=== PATIENT | female | born 1960 | race Caucasian/White ===

== ENCOUNTER 2021-05-23 19:10 | Inpatient (IN) | payer BC ==
[2021-05-23] MEDS ORDERED: Acetaminophen 325 MG Tab PO ONE (19:41)
--- NOTE | 2021-05-23 19:55 | EDM.PDOC ---
ED HPI GENERAL MEDICAL PROBLEM - General Chief Complaint: Possible Sepsis Stated Complaint: NOT FEEKING WELL/ DIABETES Time Seen by Provider: 05/23/21 19:30 History Limitations: Reports: No Limitations, Intoxication - History of Present Illness INITIAL COMMENTS - FREE TEXT/NARRATIVE: 60-year-old lady came to the emergency department for evaluation of about a 24- hour history of really not feeling well. She has had fever, chills, shakes, nausea without vomiting, weakness/malaise. Approximately 8 weeks ago she had a pedicure and got an infection in her right great toe. She saw her primary care physician on 04/29/2021 and was treated with doxycycline. She states that the infection initially improved but has gotten much worse over the last 2 to 3 days. She has developed a large blister that looks like a blood blister medial distal aspect of her right great toe. The area of erythema and swelling has expanded proximally towards the metatarsal phalangeal joint. He was treated with doxycycline for 10 days starting on 04/29/2021. Generalized Pain Score (Numeric/FACES): 4 - Related Data Allergies Allergy/AdvReac Type Severity Reaction Status Date / Time rabies immune globulin Allergy Swelling Verified 05/23/21 19:42 Home Meds: Home Meds Aspirin [[place] Aspirin EC] 81 mg PO DAILY 05/23/21 [History] FLUoxetine HCl [Prozac] 20 mg PO DAILY 05/23/21 [History] Insulin Aspart [Insulin Aspart Flexpen] 30 units SQ TID 05/23/21 [History] Insulin Degludec [Tresiba Flextouch U-100] 90 units SQ BEDTIME 05/23/21 [History] Meclizine [Antivert] 25 mg PO Q4H PRN 05/23/21 [History] Rosuvastatin [Crestor] 10 mg PO DAILY 05/23/21 [History] metFORMIN HCl [Metformin HCl ER] 500 mg PO BID 05/23/21 [History] Past Medical History Cardiovascular History: Reports: High Cholesterol Gastrointestinal History: Reports: Gastritis, GERD [employer] History: Reports: Musculoskeletal History: Reports: Other (See Below) Other Musculoskeletal History: fx left toe, infection great toe rt foot Psychiatric History: Reports: Depression - Past Surgical History Female Surgical History: Reports: Hysterectomy Social & Family History - Tobacco Use Tobacco Use Status *Q: Never Tobacco User - Caffeine Use Caffeine Use: Reports: Coffee, Soda - Recreational Drug Use Recreational Drug Use: No ED ROS GENERAL - Review of Systems Review Of Systems: See Below Constitutional: Reports: Fever, Chills, Malaise, Weakness HEENT: Reports: No Symptoms Respiratory: Reports: No Symptoms Cardiovascular: Reports: No Symptoms Endocrine: Reports: Fatigue, Other (Type 2 diabetes) GI/Abdominal: Reports: Nausea : Reports: No Symptoms Musculoskeletal: Reports: Foot Pain Skin: Reports: Bruising, Erythema, Change in Color, Change in Hair/Nails, Lesions Neurological: Reports: No Symptoms Psychiatric: Reports: No Symptoms Hematologic/Lymphatic: Reports: No Symptoms Immunologic: Reports: No Symptoms ED EXAM, SEPSIS - Physical Exam Exam: See Below Exam Limited By: No Limitations General Appearance: Alert, Mild Distress Eye Exam: Bilateral Eye: EOMI Head: Atraumatic, Normocephalic Respiratory/Chest: No Respiratory Distress, Lungs Clear, Normal Breath Sounds Cardiovascular: Tachycardia, Systolic Murmur Peripheral Pulses: 2+: Radial (L), Radial (R), Dorsalis Pedis (L), Dorsalis Pedis (R) GI/Abdominal Exam: Normal Bowel Sounds, Soft, Non-Tender Back: Normal Inspection. No: CVA Tenderness (R), CVA Tenderness (L) Extremities: Normal Capillary Refill, Other (Visual inspection of the right great toe shows erythema, ecchymosis, approximately 0.5 x 0.5 x 0.5 blood blister on the distal, medial aspect of the right great toe, sensation and capillary refill are intact, strength and movement intact) Neurological: Alert, Oriented, CN II-XII Intact, Normal Cognition Psychiatric: Normal Affect, Normal Mood Skin: Ecchymosis, Erythema, Increased Warmth Course - Vital Signs Last Recorded V/S: Last Vital Signs Temp 38.8 C H 05/23/21 20:44 Pulse 103 H 05/23/21 20:44 Resp 20 05/23/21 20:44 BP 152/67 H 05/23/21 20:44 Pulse Ox 89 L 05/23/21 20:44 - Orders/Labs/Meds Orders: Active Orders 24 hr Category Date Time Status Patient Status Manage Transfer [TRANSFER] Routine ADT 05/23/21 22:37 Active Heart Healthy Diet [DIET] Diet 05/24/21 Breakfast Ordered Chest 1V Frontal [CR] Stat Exams 05/23/21 20:48 Taken BASIC METABOLIC PANEL,BMP [CHEM] Stat Lab 05/24/21 Ordered CBC WITH AUTO DIFF [HEME] Stat Lab 05/24/21 Ordered CULTURE BLOOD [BC] Urgent Lab 05/23/21 19:55 Received CULTURE BLOOD [BC] Urgent Lab 05/23/21 20:00 Received VANCOMYCIN TROUGH [CHEM] Timed Lab 05/25/21 07:30 Ordered Pharmacy to Dose - Vancomycin Med 05/23/21 20:00 Pending 1 dose .XX ASDIRECTED Piperacillin/Tazobactam [Zosyn] 3.375 gm Med 05/23/21 20:00 Active Sodium Chloride 0.9% [Normal Saline] 50 ml IV Q6H Sodium Chloride 0.9% [Normal Saline] 1,000 ml Med 05/23/21 22:45 Active IV ASDIRECTED VANCOmycin 1.5 GM/300 ML 1.5 gm Med 05/24/21 09:00 Active Premix Bag 1 bag IV Q12H Blood Culture x2 Reflex Set [OM.PC] Urgent Oth 05/23/21 19:40 Ordered Medication Orders Piperacillin Sod/Tazobactam (Sod 3.375 gm/ Sodium Chloride) 50 mls @ 100 mls/hr IV Q6H REINA Last Admin: 05/23/21 20:14 Dose: 100 mls/hr Documented by: GERDA Vancomycin HCl 1.5 gm/ Premix 300 mls @ 200 mls/hr IV Q12H REINA Sodium Chloride (Normal Saline) 1,000 mls @ 125 mls/hr IV ASDIRECTED [facility] Vancomycin HCl (Pharmacy To Dose - Vancomycin) 1 dose .XX ASDIRECTED [facility] Labs: Laboratory Tests 05/23/21 05/23/21 05/23/21 Range/Units 19:55 19:55 19:55 WBC 7.7 (3.0-10.3) x10-3/uL RBC 4.11 (3.60-5.20) x10(6)uL Hgb 11.3 L (11.4-15.5) g/dL Hct 34.0 L (34.2-48.2) % MCV 82.6 (76.7-100.5) fL MCH 27.4 (23.9-33.9) pg MCHC 33.1 (31.9-34.8) g/dL RDW 14.7 (12.3-16.5) % Plt Count 186 (151-488) x10(3)uL MPV 9.0 (7.1-12.4) fL Neut % (Auto) 84.2 H (30.8-76.2) % Lymph % (Auto) 9.5 L (18.4-52.1) % [place] % (Auto) 5.8 (4.4-15.7) % Eos % (Auto) 0.2 L (0.6-8.1) % Baso % (Auto) 0.3 (0.2-1.5) % Neut # (Auto) 6.5 H (1.5-6.3) x10-3/uL Lymph # (Auto) 0.7 L (1.0-4.4) x10-3/uL [place] # (Auto) 0.5 (0.3-1.0) x10-3/uL Eos # (Auto) 0.0 (0.0-0.8) x10-3/uL Baso # (Auto) 0.0 (0.0-0.1) x10-3/uL Sodium 136 (135-145) mmol/L Potassium 3.9 (3.5-5.3) mmol/L Chloride 100 (100-110) mmol/L Carbon Dioxide 27 (21-32) mmol/L BUN 18 (7-18) mg/dL Creatinine 1.2 H (0.55-1.02) mg/dL Est Cr Clr Drug Dosing 46.09 mL/min Estimated GFR (MDRD) 46 L (>60) BUN/Creatinine Ratio 15.0 (9-20) Glucose 219 H (80-116) mg/dL Lactic Acid 1.0 (0.4-2.0) mmol/L Calcium 8.7 (8.6-10.2) mg/dL Total Bilirubin 0.5 (0.1-1.3) mg/dL AST 23 (5-25) IU/L ALT 41 H (12-36) U/L Alkaline Phosphatase 89 (56-112) IU/L C-Reactive Protein (0.5-0.9) mg/dL Total Protein 7.6 (6.0-8.0) g/dL Albumin 3.2 (3.2-4.6) g/dL Globulin 4.4 g/dL Albumin/Globulin Ratio 0.7 SARS-CoV-2 RNA (GARRETT) (NEGATIVE) 05/23/21 05/23/21 Range/Units 19:55 20:54 WBC (3.0-10.3) x10-3/uL RBC (3.60-5.20) x10(6)uL Hgb (11.4-15.5) g/dL Hct (34.2-48.2) % MCV (76.7-100.5) fL MCH (23.9-33.9) pg MCHC (31.9-34.8) g/dL RDW (12.3-16.5) % Plt Count (151-488) x10(3)uL MPV (7.1-12.4) fL Neut % (Auto) (30.8-76.2) % Lymph % (Auto) (18.4-52.1) % [place] % (Auto) (4.4-15.7) % Eos % (Auto) (0.6-8.1) % Baso % (Auto) (0.2-1.5) % Neut # (Auto) (1.5-6.3) x10-3/uL Lymph # (Auto) (1.0-4.4) x10-3/uL [place] # (Auto) (0.3-1.0) x10-3/uL Eos # (Auto) (0.0-0.8) x10-3/uL Baso # (Auto) (0.0-0.1) x10-3/uL Sodium (135-145) mmol/L Potassium (3.5-5.3) mmol/L Chloride (100-110) mmol/L Carbon Dioxide (21-32) mmol/L BUN (7-18) mg/dL Creatinine (0.55-1.02) mg/dL Est Cr Clr Drug Dosing mL/min Estimated GFR (MDRD) (>60) BUN/Creatinine Ratio (9-20) Glucose (80-116) mg/dL Lactic Acid (0.4-2.0) mmol/L Calcium (8.6-10.2) mg/dL Total Bilirubin (0.1-1.3) mg/dL AST (5-25) IU/L ALT (12-36) U/L Alkaline Phosphatase (56-112) IU/L C-Reactive Protein 12.7 H* (0.5-0.9) mg/dL Total Protein (6.0-8.0) g/dL Albumin (3.2-4.6) g/dL Globulin g/dL Albumin/Globulin Ratio SARS-CoV-2 RNA (GARRETT) Negative (NEGATIVE) Meds: Medications Generic Name Dose Route Start Last Admin Trade Name Freq PRN Reason Stop Dose Admin Piperacillin Sod/Tazobactam 50 mls @ 100 mls/hr 05/23/21 20:00 05/23/21 20:14 Sod 3.375 gm/ Sodium Chloride IV 100 mls/hr Q6H REINA Administration Vancomycin HCl 1.5 gm/ Premix 300 mls @ 200 mls/hr 05/24/21 09:00 IV Q12H REINA Sodium Chloride 1,000 mls @ 125 mls/hr 05/23/21 22:45 Normal Saline IV ASDIRECTED REINA Vancomycin HCl 1 dose 05/23/21 20:00 Pharmacy To Dose - Vancomycin .XX ASDIRECTED REINA Discontinued Medications Generic Name Dose Route Start Last Admin Trade Name Freq PRN Reason Stop Dose Admin Acetaminophen 650 mg 05/23/21 19:41 05/23/21 19:59 Acetaminophen 325 Mg Tab PO 05/23/21 19:42 650 mg NOW ONE Administration Sodium Chloride 1,000 mls @ 999 mls/hr 05/23/21 19:56 05/23/21 21:02 Normal Saline IV 05/23/21 20:56 300 mls/hr .BOLUS ONE Infusion Vancomycin HCl 2 gm/ Premix 400 mls @ 200 mls/hr 05/23/21 20:15 05/23/21 20:58 IV 05/23/21 22:14 200 mls/hr STAT ONE Administration Morphine Sulfate 2 mg 05/23/21 21:35 Morphine 2 Mg/Ml Syringe IVPUSH 05/23/21 21:36 ONETIME ONE Ondansetron HCl 4 mg 05/23/21 20:03 05/23/21 20:08 Ondansetron 4 Mg/2 Ml Sdv IVPUSH 05/23/21 20:04 4 mg ONETIME ONE Administration Ondansetron HCl 4 mg 05/23/21 21:53 05/23/21 22:08 Ondansetron 4 Mg/2 Ml Sdv IVPUSH 05/23/21 21:54 4 mg ONETIME ONE Administration Departure - Departure Time of Disposition: 22:43 Disposition: Admitted As Inpatient 65 Condition: Fair Clinical Impression: Sepsis, Cellulitis - Discharge Information *PRESCRIPTION DRUG MONITORING PROGRAM REVIEWED*: Not Applicable *COPY OF PRESCRIPTION DRUG MONITORING REPORT IN PATIENT ANNE: Not Applicable Instructions: Cellulitis, Adult, Sepsis, Diagnosis, Adult Forms: ED Department Discharge Sepsis Event Note (ED) - Evaluation Sepsis Screening Result: Possible Severe Sepsis Risk - Focused Exam Vital Signs: Vital Signs Temp Pulse Resp BP Pulse Ox 05/23/21 20:44 38.8 C H 103 H 20 152/67 H 89 L 05/23/21 19:20 39.5 C H 116 H 20 164/81 H 94 L - My Orders Last 24 Hours: My Active Orders 05/23/21 19:40 Blood Culture x2 Reflex Set [OM.PC] Urgent 05/23/21 19:55 CULTURE BLOOD [BC] Urgent 05/23/21 20:00 CULTURE BLOOD [BC] Urgent Pharmacy to Dose - Vancomycin 1 dose .XX ASDIRECTED Piperacillin/Tazobactam [Zosyn] 3.375 gm Sodium Chloride 0.9% [Normal Saline] 50 ml IV Q6H 05/23/21 20:48 Chest 1V Frontal [CR] Stat 05/23/21 22:37 Patient Status Manage Transfer [TRANSFER] Routine 05/23/21 22:45 Sodium Chloride 0.9% [Normal Saline] 1,000 ml IV ASDIRECTED 05/24/21 BASIC METABOLIC PANEL,BMP [CHEM] Stat CBC WITH AUTO DIFF [HEME] Stat 05/24/21 Breakfast Heart Healthy Diet [DIET] 05/24/21 09:00 VANCOmycin 1.5 GM/300 ML 1.5 gm Premix Bag 1 bag IV Q12H - Assessment/Plan Last 24 Hours: My Active Orders 05/23/21 19:40 Blood Culture x2 Reflex Set [OM.PC] Urgent 05/23/21 19:55 CULTURE BLOOD [BC] Urgent 05/23/21 20:00 CULTURE BLOOD [BC] Urgent Pharmacy to Dose - Vancomycin 1 dose .XX ASDIRECTED Piperacillin/Tazobactam [Zosyn] 3.375 gm Sodium Chloride 0.9% [Normal Saline] 50 ml IV Q6H 05/23/21 20:48 Chest 1V Frontal [CR] Stat 05/23/21 22:37 Patient Status Manage Transfer [TRANSFER] Routine 05/23/21 22:45 Sodium Chloride 0.9% [Normal Saline] 1,000 ml IV ASDIRECTED 05/24/21 BASIC METABOLIC PANEL,BMP [CHEM] Stat CBC WITH AUTO DIFF [HEME] Stat 05/24/21 Breakfast Heart Healthy Diet [DIET] 05/24/21 09:00 VANCOmycin 1.5 GM/300 ML 1.5 gm Premix Bag 1 bag IV Q12H Assessment:: Patient has a systolic ejection murmur. I looked at her heart using ultrasound and showed thickened mitral and aortic valves with no significant regurgitation. However, she does have aortic sclerosis at minimum. Continue to have concern for endocarditis. Trend blood cultures. I also have concern for osteomyelitis. Consider consultation with surgery and/or transfer to [facility] when a bed is available.
[2021-05-23] MEDS ORDERED: Sodium Chloride 0.9% 1,000 ML IV ONE (19:56)
[2021-05-23] MEDS ORDERED: Ondansetron 4 MG/2 ML SDV IVPUSH ONE ×2 (20:03→21:53)
[2021-05-23] MEDS: Piperacillin/Tazobactam 3.375 GM in Sodium Chloride 0.9% 50 ML IV SCH (20:14)
[2021-05-23] MEDS ORDERED: VANCOmycin 2 GM/400 ML 2 GM in Premix Bag 1 BAG IV ONE (20:15)
[2021-05-23] MEDS ORDERED: Morphine 2 MG/ML SYRINGE IVPUSH ONE (21:35)
[2021-05-23] MEDS: Sodium Chloride 0.9% 1,000 ML IV SCH (23:10)
[2021-05-23] MEDS ORDERED: Acetaminophen/HYDROcodone 325-5 MG Tab PO PRN (23:30)
[2021-05-23] MEDS: Acetaminophen/HYDROcodone 325-5 MG Tab PO PRN (23:39)
[2021-05-24] MEDS: Piperacillin/Tazobactam 3.375 GM in Sodium Chloride 0.9% 50 ML IV SCH ×4 (02:07→20:04)
[2021-05-24] MEDS: Ondansetron 4 MG/2 ML SDV IVPUSH SCH ×3 (02:09→14:06)
[2021-05-24] MEDS ORDERED: Ondansetron 4 MG/2 ML SDV IVPUSH PRN (09:00)
[2021-05-24] MEDS: VANCOmycin 1.5 GM/300 ML 1.5 GM in Premix Bag 1 BAG IV SCH ×2 (09:50→20:55)
[2021-05-24 10:43] LABS: HEMOGLOBIN A1C 8.8 % (<5.7)
--- NOTE | 2021-05-24 13:16 | CR ---
RIGHT GREAT TOE INDICATION: Infected toe in a diabetic. Three views of the right great toe revealed evidence of severe osteoarthritis at the first metatarsophalangeal joint. The possibility of a septic joint in that area is difficult to entirely exclude. Osteomyelitis in the area of the medial first metatarsophalangeal joint is difficult to exclude. No definite acute fracture or dislocation was seen, although an ununited chip fracture fragment is suggested along the medial aspect of the proximal metaphysis of the proximal phalanx of the great toe. As felt to be clinically necessary, three phase nuclear bone imaging may be helpful for further evaluation. MTDD
--- NOTE | 2021-05-24 13:18 | CR ---
CHEST ONE VIEW INDICATION: Cough. AP upright portable view of the chest was obtained 05/23/2021 - no comparison. The heart did not appear grossly enlarged allowing for the portable AP positioning. No gross consolidating pneumonia or effusion was seen. IMPRESSION: No definite acute process. MTDD
[2021-05-24] MEDS ORDERED: Insulin Lispro 100 Unit/ML 3 ML KwikPen SUBCUT ONE (13:38)
[2021-05-24] MEDS: Insulin Lispro 100 Unit/ML 3 ML KwikPen SUBCUT SCH ×2 (13:39→18:13)
--- NOTE | 2021-05-24 13:40 | HP ---
ADMISSION DATE: 05/23/2021 CHIEF COMPLAINT: Painful right great toe. HISTORY OF PRESENT ILLNESS: Jazmín Mills is a 60-year-old female, admitted through [facility] on 05/23/2021. Had been in good health. By report, had a pedicure sometime in February. She had been trimming on a callus in the interim. A week ago had pain, discomfort, redness. Was seen by Mary Aguiar PA-C at [facility], placed on doxycycline. Has an upcoming appointment tomorrow. Yesterday, though became much more ill. Fever, chills, sweats, hot and cold headache, myalgias, and a sense of reduced well-being through the night. Dictated intervention and treatment and visit with the ER. Was found to have swollen toe, was placed on antibiotic. No blood cultures were obtained. HOME MEDICATIONS: Include: 1. Metformin 500 mg 1 p.o. b.i.d., NIDDM. 2. Crestor 10 mg 1 p.o. daily, NIDDM. 3. Tresiba 90 units subcu at bedtime. 4. Humalog 30 units t.i.d. each meal. 5. Fluoxetine 20 mg daily. 6. Baby aspirin. ALLERGIES: Allergic to rabies immunoglobulin. PAST MEDICAL HISTORY: Significant for menorrhagia, and left Achilles tendon repair. No other operative procedures, hospitalizations, unusual childhood diseases, major injuries, or fractures. Treated diabetes and its implicating health issues. SOCIAL HISTORY: Works for the [employer]. . Three boys, 11 grandchildren. Nonsmoker. No chewing. No vaping. No alcohol. REVIEW OF SYSTEMS: CONSTITUTIONAL: Other than yesterday, feeling well. EYES: Sees well. EARS: Hears well. OROPHARYNX: Intact dentition. No loose teeth. CARDIOVASCULAR: Denies chest pain, palpitations, syncope. RESPIRATORY: No chronic cough, wheeze, or congestion. GASTROINTESTINAL: Regular predictable stools. No blood in stools. GENITOURINARY: Good voiding pattern. No blood in urine . ORTHOPEDIC: Please see HPI. SKIN: No lesions, eruptions, or moles . ENDOCRINE: Diabetes on board. PSYCHIATRIC: Mood stable, on fluoxetine. NEUROLOGIC: Denies headache, blurred vision, weakness, or tremors. PHYSICAL EXAMINATION: VITAL SIGNS: 94 kg. 36.4, 76, 132/72, 18, 92%. GENERAL: Young lady, cooperative, conversant, appears well. HEENT: Funduscopic benign. Conjunctivae clear. Bright tympanic membranes. Clear nasal discharge. Mouth and oropharynx clear. NECK: Benign. Thyroid small. CHEST: On auscultation, clear in all lung ardon. HEART: On auscultation, no ectopy or murmur. Normal S1, S2 without S3, S4, murmur. BREASTS: Declined and deferred. ABDOMEN: Benign. No surgical scars. No hepatosplenomegaly. EXTREMITIES: Reveal good peripheral pulse, dorsalis pedis posterior bilaterally. There was a large blistering ecchymotic warm erythematous right great toe extending on the dorsum midfoot. ASSESSMENT: Complicated right great toe issue, certainly soft tissue infection, potential osteomyelitis. PLAN: Zosyn and vancomycin on board. Analgesics as appropriate. Medications adjusted accordingly. We will see consultation with Dr. Torres for debridement and culture. /[id number] /PETER
[2021-05-24] MEDS: Acetaminophen/HYDROcodone 325-5 MG Tab PO PRN (13:51)
--- NOTE | 2021-05-24 13:56 | PN ---
DATE SEEN: 05/24/2021 This 60-year-old female is seen at the request of Dr. Jimenez for right great toe infection. She was admitted through the emergency room yesterday and was found to have evidence of a right great toe infection, possible sepsis. She is diabetic. She had been having some fevers, chills, and nausea. She had gotten a pedicure a couple of months ago on the right great toe and has had some problems with it. She was treated with oral antibiotics a couple of weeks ago by her primary provider, and the toe got worse over the last few days and was now a blister extending from the bottom of her toe to the medial side. On exam today, she does have evidence of an infection and I did excise the blister on the medial aspect of the toe with some bloody purulent-type drainage. This was cultured. There is some slight erythema around the blister site, but no extensive cellulitis. At this point, she should continue her antibiotics and culture results will be back in a couple of days, and antibiotics can be adjusted at that time if necessary. I will have her start to soak her foot twice daily. /[id number] SELENA/PETER
[2021-05-24] MEDS: metFORMIN 500 MG Tab.ER PO SCH (18:12)
[2021-05-24] MEDS: Sodium Chloride 0.9% 1,000 ML IV SCH (19:36)
[2021-05-24] MEDS ORDERED: Insulin Glargine,Human Rec. Analog 100 Units/ML 3 ML Pen SUBCUT ONE (21:07)
[2021-05-24] MEDS: Insulin Glargine,Human Rec. Analog 100 Units/ML 3 ML Pen SUBCUT SCH (21:09)
[2021-05-25] MEDS: Acetaminophen/HYDROcodone 325-5 MG Tab PO PRN (00:47)
[2021-05-25] MEDS: Piperacillin/Tazobactam 3.375 GM in Sodium Chloride 0.9% 50 ML IV SCH ×4 (02:36→20:55)
[2021-05-25] MEDS: Sodium Chloride 0.9% 1,000 ML IV SCH (06:02)
[2021-05-25] MEDS: metFORMIN 500 MG Tab.ER PO SCH ×2 (08:22→17:48)
[2021-05-25] MEDS: Insulin Lispro 100 Unit/ML 3 ML KwikPen SUBCUT SCH ×3 (08:22→17:49)
[2021-05-25] MEDS: FLUoxetine 20 MG Cap PO SCH (08:33)
[2021-05-25] MEDS: Rosuvastatin 10 MG Tab PO SCH (08:33)
[2021-05-25] MEDS: Aspirin 81 MG Tab.EC PO SCH (08:33)
[2021-05-25] MEDS: VANCOmycin 1.5 GM/300 ML 1.5 GM in Premix Bag 1 BAG IV SCH ×2 (09:14→21:36)
[2021-05-25] MEDS: Insulin Glargine,Human Rec. Analog 100 Units/ML 3 ML Pen SUBCUT SCH (20:56)
[2021-05-26] MEDS: Piperacillin/Tazobactam 3.375 GM in Sodium Chloride 0.9% 50 ML IV SCH ×4 (02:06→21:04)
[2021-05-26] MEDS: metFORMIN 500 MG Tab.ER PO SCH ×2 (08:24→17:37)
[2021-05-26] MEDS: Insulin Lispro 100 Unit/ML 3 ML KwikPen SUBCUT SCH ×3 (08:25→17:37)
[2021-05-26] MEDS: Sodium Chloride 0.9% 10 ML Syringe FLUSH PRN ×2 (08:25→10:30)
[2021-05-26] MEDS: Rosuvastatin 10 MG Tab PO SCH (08:35)
[2021-05-26] MEDS: Aspirin 81 MG Tab.EC PO SCH (08:36)
[2021-05-26] MEDS: FLUoxetine 20 MG Cap PO SCH (08:36)
[2021-05-26] MEDS: VANCOmycin 1.5 GM/300 ML 1.5 GM in Premix Bag 1 BAG IV SCH ×2 (08:54→21:37)
--- NOTE | 2021-05-26 14:30 | PN ---
DATE SEEN: 05/25/2021 SUBJECTIVE: Jazmín Mills is a 60-year-old female admitted with complicated right toe pain. Had a preceding pedicure event, was doing some local debridement, resulted in a complicated infection. Was seen by Dr. Torres, underwent I and D and debridement and culture. Culture this morning pending, no growth. Blood culture similarly no growth after one day. Laboratory studies; normal CBC 05/23/2021 and 05/24/2021. Radiographs of her great toe difficult to interpret. Waiting for the x-ray to come up. She has an obvious likely preexisting injury to the toe. A little bit of a lateral 1st phalanx chip fracture, deforming of the distal 1st metatarsal. Infectious versus old injury uncertain. She is presently on intravenous vancomycin per Pharmacy, along with piperacillin/tazobactam (Zosyn) 3.375 q.6 hours, vancomycin 1.5 g q.12 hours. Minimal pain. OBJECTIVE: GENERAL: Appears comfortable. NECK: Benign. Thyroid small. CHEST: Clear. HEART: Regular. ABDOMEN: Benign. EXTREMITIES: Toe dressed. Complicated toe infection. PLAN: We will await cultures, blood cultures are negative, complementary care and well being, pain is controlled. /[id number] LIZ/PETER
--- NOTE | 2021-05-26 14:31 | PN ---
DATE SEEN: 05/26/2021 SUBJECTIVE: Jazmín Mills is a 60-year-old female admitted with a complicated right toe issue. Likely superficial and not deep. Blood cultures are negative x2 days, both anaerobic and aerobic. Wound culture revealed both gram-positive and negative bacilli, but maybe predominant gram- positive cocci staph pending evaluation. Feeling much better. Happy with all the toe looks. OBJECTIVE: VITAL SIGNS: Stable. EXTREMITIES: Good peripheral pulses, both dorsalis pedis and posterior tibial. Eschar healing. ASSESSMENT: Toe infection. PLAN: Likely superficial, but osteomyelitis is still a concern. Await cultures. Intervention and care. /[id number] LIZ/PETER
[2021-05-26] MEDS: Insulin Glargine,Human Rec. Analog 100 Units/ML 3 ML Pen SUBCUT SCH (21:07)
[2021-05-27] MEDS: Piperacillin/Tazobactam 3.375 GM in Sodium Chloride 0.9% 50 ML IV SCH ×3 (02:08→13:10)
[2021-05-27] MEDS: metFORMIN 500 MG Tab.ER PO SCH (07:30)
[2021-05-27] MEDS: Insulin Lispro 100 Unit/ML 3 ML KwikPen SUBCUT SCH ×2 (07:31→11:47)
[2021-05-27] MEDS: VANCOmycin 1.5 GM/300 ML 1.5 GM in Premix Bag 1 BAG IV SCH (08:13)
[2021-05-27] MEDS: FLUoxetine 20 MG Cap PO SCH (08:14)
[2021-05-27] MEDS: Rosuvastatin 10 MG Tab PO SCH (08:14)
[2021-05-27] MEDS: Aspirin 81 MG Tab.EC PO SCH (08:14)
[2021-05-27] MEDS ORDERED: Sodium Chloride 0.9% 250 ML IV SCH (09:45)
[2021-05-27] MEDS ORDERED: Gadoteridol 279.3 MG/ML 20 ML SDV IV ONE (11:18)
[2021-05-27] MEDS ORDERED: Insulin Lispro 100 Unit/ML 3 ML KwikPen SUBCUT ONE (11:49)
--- NOTE | 2021-05-27 15:22 | PCM.DCSUM1 ---
Discharge Summary - Hospital Course HPI Initial Comments: Admitted from ER for right great toe cellulitis, failed outpatient treatment, had been on cephalexin for sinus infection March 19 then Bactrim and Doxycycline since then for her toe. Had a pedicure in February, they trimmed her callus too much and she sustained a cut, she had been self trimming the callus since then. Week prior to coming to ER she had increased redness, pain, fever, chills, night sweats, headaches, myalgias. She has been Diabetic for 10 yrs, does not see podiatry regularly, but gets her diabetic foot care from Mary Aguiar, PCP. She does have starting of neuropathy. Her chiropractor told her she rolls her foot when she walks especially when she wears sandals. Jazmín states that she usually has problems with the callus in the summer and improves in the winter when she is wearing more supportive shoes. Diagnosis: Stroke: No - Discharge Data Discharge Date: 05/27/21 Discharge Disposition: Home, Self-Care 01 Condition: Fair - Referral to Home Health Primary Care Physician: Mary Aguiar NP - Patient Summary/Data Consults: Consultations 05/24/21 08:52 Consult to Physician [CONS] Routine Consulting Provider: Len Torres Courtesy Call Completed to Consulting Physician: Yes Reason for Consult: bbad toe might need to be debrided Person Notified: yes phonecall at [phone] Date Notified: 05/24/21 Hospital Course: She was admitted for failed outpatient treatment of right great toe cellulitis, started on Zosyn and Vancomycin. CBC was 7.7 and repeat 6.8. Electrolytes normal on admission, repeat today, Cr 1.0. Covid negative. Last vancomycin trough was 16.4. Dr Torres was consulted, he performed I&D and had purulent drainage that was cultured. Wound culture grew staph aureus sensitive to ceftriaxone, Zosyn, Vancomycin and Tetracycline, Bactrim. Her Vancomycin was discontinued. Foot x- ray showed no acute fracture but possible nonunion, could not exclude septic joint or osteomyelitis. Unable to get nuclear medicine bone scan that was recommended so MRI right foot obtained, which showed significant osteoarthritis but no fracture or osteomyelitis/joint involvement. Zosyn received total 4 days IV, then will go home with 6 more days of oral Amoxicillin/clavulanate bid. - Patient Instructions Diet: Diabetic Diet Activity: As Tolerated Driving: Do Not Drive Showering/Bathing: May Shower Wound/Incision Care: Keep Operative Site/Wound Site Clean and Dry Notify Provider of: Fever, Increased Pain, Nausea and/or Vomiting Other/Special Instructions: Follow up with Mary Aguiar on Sunday/Sunday next week for recheck of your foot and review MRI of foot. Start Amoxicillin/Clavulanate Monday 05/28 morning and take until gone. - Discharge Plan *PRESCRIPTION DRUG MONITORING PROGRAM REVIEWED*: Not Applicable *COPY OF PRESCRIPTION DRUG MONITORING REPORT IN PATIENT ANNE: Not Applicable Prescriptions/Med Rec: Amoxicillin/Potassium Clav [Amox Tr-K Clv 875-125 mg Tab] 1 each PO BID 6 Days #12 tablet Home Medications: Home Meds Aspirin [[place] Aspirin EC] 81 mg PO DAILY 05/23/21 [History] FLUoxetine HCl [Prozac] 20 mg PO DAILY 05/23/21 [History] Insulin Aspart [Insulin Aspart Flexpen] 30 units SQ TIDMEALS 05/23/21 [History] Insulin Degludec [Tresiba Flextouch U-100] 90 units SQ BEDTIME 05/23/21 [History] Meclizine [Antivert] 25 mg PO Q4H PRN 05/23/21 [History] Rosuvastatin [Crestor] 10 mg PO DAILY 05/23/21 [History] metFORMIN HCl [Metformin HCl ER] 500 mg PO BIDMEALS 05/23/21 [History] Triamcinolone Acetonide [Nasacort] 1 spray NASBOTH DAILY 05/24/21 [History] Amoxicillin/Potassium Clav [Amox Tr-K Clv 875-125 mg Tab] 1 each PO BID 6 Days #12 tablet 05/27/21 [Rx] Oxygen Therapy Mode: Room Air Patient Handouts: Cellulitis, Adult, Sepsis, Diagnosis, Adult, Hyperglycemia, [id number], Fall Prevention in Hospitals, Adult, You've Been Prescribed an Antibiotic in the Hospital for an Infection - CDC, Venous Thromboembolism Pr evention Forms: ED Department Discharge Referrals: Mary Aguiar, [employer] [employer] [facility] [Primary Care Provider] - - Discharge Summary/Plan Comment DC Time >30 min.: No Total # of Minutes for Discharge Time: 15 min - General Info Date of Service: 05/27/21 Subjective Update: Jazmín states her toe is feeling better, not as red, pain is well controlled. No difficulty walking on it. No fevers. Functional Status: Reports: Pain Controlled, Tolerating Diet, Ambulating, Urinating - Patient Data Vitals - Most Recent: Last Vital Signs Temp 96.8 F L 05/27/21 08:37 Pulse 60 05/27/21 08:37 Resp 51 H 05/27/21 08:37 BP 150/58 H 05/27/21 08:37 Pulse Ox 92 L 05/27/21 08:37 Weight - Most Recent: 208 lb 9 oz I&O - Last 24 hours: Intake & Output 05/27/21 05/27/21 05/27/21 06:59 14:59 22:59 Intake Total 500 Balance 500 Lab Results - Last 24 hrs: Laboratory Results - last 24 hr 05/26/21 05/27/21 Range/Units 20:30 08:40 Sodium 139 (135-145) mmol/L Potassium 4.0 (3.5-5.3) mmol/L Chloride 97 L D (100-110) mmol/L Carbon Dioxide 26 (21-32) mmol/L BUN 17 (7-18) mg/dL Creatinine 1.0 (0.55-1.02) mg/dL Est Cr Clr Drug Dosing 53.16 mL/min Estimated GFR (MDRD) 56 L (>60) BUN/Creatinine Ratio 17.0 (9-20) Glucose 273 H (80-116) mg/dL Calcium 8.7 (8.6-10.2) mg/dL Vancomycin Trough 16.4 H (<0.8) ug/mL FRANCINE Results - Last 24 hrs: Microbiology 05/23/21 20:00 Aerobic Blood Culture - Preliminary Blood - Venous - Lab Draw NO GROWTH AFTER 3 DAYS Anaerobic Blood Culture - Preliminary NO GROWTH AFTER 3 DAYS 05/23/21 19:55 Aerobic Blood Culture - Preliminary Blood - Venous NO GROWTH AFTER 3 DAYS Anaerobic Blood Culture - Preliminary NO GROWTH AFTER 3 DAYS Med Orders - Current: Current Medications Discontinued Medications Acetaminophen (Acetaminophen 325 Mg Tab) 650 mg PO NOW ONE Stop: 05/23/21 19:42 Last Admin: 05/23/21 19:59 Dose: 650 mg Documented by: Hydrocodone Bitart/Acetaminophen (Acetaminophen/Hydrocodone 325-5 Mg Tab) 1 tab PO Q4H PRN PRN Reason: Pain (moderate 4-6) Last Admin: 05/25/21 00:47 Dose: 1 tab Documented by: Aspirin (Aspirin 81 Mg Tab.Ec) 81 mg PO DAILY [facility] Last Admin: 05/27/21 08:14 Dose: 81 mg Documented by: Fluoxetine HCl (Fluoxetine 20 Mg Cap) 20 mg PO DAILY [facility] Last Admin: 05/27/21 08:14 Dose: 20 mg Documented by: Gadoteridol (Gadoteridol 279.3 Mg/Ml 20 Ml Sdv) 20 ml IV . DIRECTED ONE Stop: 05/27/21 11:19 Last Admin: 05/27/21 11:33 Dose: 20 ml Documented by: Piperacillin Sod/Tazobactam (Sod 3.375 gm/ Sodium Chloride) 50 mls @ 100 mls/hr IV Q6H [facility] Last Admin: 05/27/21 13:10 Dose: 100 mls/hr Documented by: Sodium Chloride (Normal Saline) 1,000 mls @ 999 mls/hr IV .BOLUS ONE Stop: 05/23/21 20:56 Last Infusion: 05/23/21 21:02 Dose: 300 mls/hr Documented by: Vancomycin HCl 2 gm/ Premix 400 mls @ 200 mls/hr IV STAT ONE Stop: 05/23/21 22:14 Last Admin: 05/23/21 20:58 Dose: 200 mls/hr Documented by: Vancomycin HCl 1.5 gm/ Premix 300 mls @ 200 mls/hr IV Q12H [facility] Last Admin: 05/27/21 08:13 Dose: 200 mls/hr Documented by: Sodium Chloride (Normal Saline) 1,000 mls @ 125 mls/hr IV ASDIRECTED [facility] Last Admin: 05/25/21 06:02 Dose: 125 mls/hr Documented by: Sodium Chloride (Normal Saline) 250 mls @ 100 mls/hr IV ASDIRECTED [facility] Last Admin: 05/27/21 13:11 Dose: 100 mls/hr Documented by: Insulin Glargine (Insulin Glargine,Human Rec. Analog 100 Units/Ml 3 Ml Pen) 90 units SUBCUT BEDTIME [facility] Last Admin: 05/26/21 21:07 Dose: 90 units Documented by: Insulin Human Lispro (Insulin Lispro 100 Unit/Ml 3 Ml Kwikpen) 30 unit SUBCUT TIDMEALS [facility] Last Admin: 05/27/21 11:47 Dose: 30 units Documented by: Metformin HCl (Metformin 500 Mg Tab.Er) 500 mg PO BIDMEALS [facility] Last Admin: 05/27/21 07:30 Dose: 500 mg Documented by: Morphine Sulfate (Morphine 2 Mg/Ml Syringe) 2 mg IVPUSH ONETIME ONE Stop: 05/23/21 21:36 Last Admin: 05/24/21 05:11 Dose: Not Given Documented by: Ondansetron HCl (Ondansetron 4 Mg/2 Ml Sdv) 4 mg IVPUSH ONETIME ONE Stop: 05/23/21 20:04 Last Admin: 05/23/21 20:08 Dose: 4 mg Documented by: Ondansetron HCl (Ondansetron 4 Mg/2 Ml Sdv) 4 mg IVPUSH ONETIME ONE Stop: 05/23/21 21:54 Last Admin: 05/23/21 22:08 Dose: 4 mg Documented by: Ondansetron HCl (Ondansetron 4 Mg/2 Ml Sdv) 4 mg IVPUSH Q4H [facility] Last Admin: 05/24/21 14:06 Dose: Not Given Documented by: Ondansetron HCl (Ondansetron 4 Mg/2 Ml Sdv) 4 mg IVPUSH Q4H PRN PRN Reason: NAUSEA/VOMITTING Rosuvastatin Calcium (Rosuvastatin 10 Mg Tab) 10 mg PO DAILY [facility] Last Admin: 05/27/21 08:14 Dose: 10 mg Documented by: Sodium Chloride (Sodium Chloride 0.9% 10 Ml Syringe) 10 ml FLUSH ASDIRECTED PRN PRN Reason: prn saline lock flush Last Admin: 05/26/21 10:30 Dose: 10 ml Documented by: Vancomycin HCl (Pharmacy To Dose - Vancomycin) 1 dose .XX ASDIRECTED [facility] - Exam General: Reports: Alert, Oriented, Cooperative Lungs: Reports: Clear to Auscultation, Normal Respiratory Effort Cardiovascular: Reports: Regular Rate, Regular Rhythm GI/Abdominal Exam: Normal Bowel Sounds, Soft, Non-Tender, No Distention Extremities: No Pedal Edema, Redness (minimal redness, lateral right great toe), Other (Callus on lateral right great toe, NT). No: Increased Warmth
== END 2021-05-27 14:51 | disposition home or self-care (01) | DRG 383 ==
LOC: FB.ED 19:10 → FB.MS 22:43
PROVIDERS: ADMIT Family Medicine; ATTEND Family Medicine
PROC: 0H9KXZZ Drainage of Right Lower Leg Skin, External Approach (ICD-10-PCS; principal; 2021-05-26)
DX: L03.031 Cellulitis of right toe (principal); B95.61 Methicillin susceptible Staphylococcus aureus infection as the cause of diseases classified elsewhere; E78.00 Pure hypercholesterolemia, unspecified; K21.9 Gastro-esophageal reflux disease without esophagitis; F32.9 Major depressive disorder, single episode, unspecified; Z88.7 Allergy status to serum and vaccine; Z79.4 Long term (current) use of insulin; Z79.899 Other long term (current) drug therapy
CPT/HCPCS: 36415; 71045; 73660-T5; 73723-RT; 80048; 80053; 80202; 82274; 83036; 83605; 85025; 86140; 87040; 87070; 87075; 87077; 87186; 87205; 93306; 96365; 96366; 96367; 96375; 96376; 99285-25; A9270-GY; A9579; J1815; J1815-GY; J2405; J2543; J3370; J7030; J7050; U0002

== ENCOUNTER 2022-08-16 17:29 | Emergency (ER) | payer BC ==
[2022-08-16] MEDS ORDERED: Ondansetron 4 MG Tab.DIS PO ONE (18:02)
[2022-08-16] MEDS ORDERED: Meclizine 25 MG Tab PO ONE (18:17)
[2022-08-16 18:37] LABS: ESTIMATED GFR 72 mL/min (>60)
== END 2022-08-16 19:15 | disposition home or self-care (01) ==
LOC: FB.ED 17:29
DX: K52.9 Noninfective gastroenteritis and colitis, unspecified (principal); H81.10 Benign paroxysmal vertigo, unspecified ear; J06.9 Acute upper respiratory infection, unspecified; E78.00 Pure hypercholesterolemia, unspecified; K21.9 Gastro-esophageal reflux disease without esophagitis; Z79.899 Other long term (current) drug therapy
CPT/HCPCS: 36415; 80048; 82947; 85025; 99284; A9270; Q0162

== ENCOUNTER 2022-11-14 18:01 | Inpatient (IN) | payer BC ==
[2022-11-14] MEDS ORDERED: Acetaminophen 500 MG Tab PO ONE (18:58)
[2022-11-14] MEDS: Sodium Chloride 0.9% 10 ML Syringe FLUSH PRN (19:05)
[2022-11-14] MEDS ORDERED: Iopamidol 755 Mg/ML 100 ML Bottle IV ONE (19:09)
[2022-11-14 19:30] LABS: ESTIMATED GFR 57 mL/min (>60)
[2022-11-14] MEDS ORDERED: Ondansetron 4 MG/2 ML SDV IV PRN (21:09)
[2022-11-14] MEDS ORDERED: cefTRIAXone 2 GM Vial IVPUSH ONE (21:09)
[2022-11-14] MEDS ORDERED: Acetaminophen 325 MG Tab PO PRN (21:09)
[2022-11-14] MEDS ORDERED: Meclizine 25 MG Tab PO PRN (21:18)
[2022-11-14] MEDS: Sodium Chloride 0.9% 1,000 ML IV SCH (21:19)
[2022-11-14] MEDS: Enoxaparin 40 MG/0.4 ML Syringe SUBCUT SCH (22:40)
[2022-11-15] MEDS ORDERED: Labetalol 20 MG/4 ML Syringe IVPUSH ONE (06:24)
[2022-11-15 07:21] LABS: ESTIMATED GFR 72 mL/min (>60)
[2022-11-15] MEDS ORDERED: Insulin Lispro 100 Unit/ML 3 ML KwikPen SUBCUT SCH (08:00)
[2022-11-15] MEDS ORDERED: Insulin Lispro 100 Unit/ML 3 ML KwikPen SUBCUT ONE (08:57)
[2022-11-15] MEDS: Insulin Lispro 100 Unit/ML 3 ML KwikPen SUBCUT SCH ×3 (08:59→17:23)
[2022-11-15] MEDS: Sodium Chloride 0.9% 1,000 ML IV SCH ×2 (09:00→18:50)
[2022-11-15] MEDS ORDERED: Pneumococcal Polyvalent-23 Vaccine 0.5 ML SDV IM ONE (09:00)
[2022-11-15] MEDS: Rosuvastatin 10 MG Tab PO SCH (09:02)
[2022-11-15] MEDS: Fluticasone NASAL Spray 16 GM Bottle NASBOTH SCH ×2 (09:02→21:55)
[2022-11-15] MEDS: Aspirin 81 MG Tab.EC PO SCH (09:02)
[2022-11-15] MEDS: FLUoxetine 20 MG Cap PO SCH (09:02)
[2022-11-15] MEDS: cefTRIAXone 1 GM Vial IVPUSH SCH (09:02)
[2022-11-15] MEDS: Acetaminophen/HYDROcodone 325-5 MG Tab PO PRN ×2 (11:40→21:43)
[2022-11-15] MEDS ORDERED: Insulin Glargine,Human Rec. Analog 100 Units/ML 3 ML Pen SUBCUT SCH ×2 (12:30→21:00)
[2022-11-15] MEDS ORDERED: Insulin Glargine,Human Rec. Analog 100 Units/ML 3 ML Pen SUBCUT ONE (13:40)
[2022-11-15] MEDS: Insulin Glargine,Human Rec. Analog 100 Units/ML 3 ML Pen SUBCUT SCH ×2 (13:42→21:56)
[2022-11-15] MEDS ORDERED: Losartan 25 MG Tab PO SCH (21:00)
[2022-11-15] MEDS: Enoxaparin 40 MG/0.4 ML Syringe SUBCUT SCH (22:01)
[2022-11-16] MEDS: Sodium Chloride 0.9% 1,000 ML IV SCH (05:01)
[2022-11-16 06:33] LABS: ESTIMATED GFR 57 mL/min (>60)
[2022-11-16] MEDS: Insulin Lispro 100 Unit/ML 3 ML KwikPen SUBCUT SCH ×2 (08:39→11:37)
[2022-11-16] MEDS: Aspirin 81 MG Tab.EC PO SCH (08:41)
[2022-11-16] MEDS: Rosuvastatin 10 MG Tab PO SCH (08:41)
[2022-11-16] MEDS: FLUoxetine 20 MG Cap PO SCH (08:41)
[2022-11-16] MEDS: Fluticasone NASAL Spray 16 GM Bottle NASBOTH SCH (08:42)
[2022-11-16] MEDS: Insulin Glargine,Human Rec. Analog 100 Units/ML 3 ML Pen SUBCUT SCH (08:43)
[2022-11-16] MEDS: cefTRIAXone 1 GM Vial IVPUSH SCH (08:44)
[2022-11-16] MEDS: Sodium Chloride 0.9% 10 ML Syringe FLUSH PRN (08:47)
[2022-11-16] MEDS ORDERED: Saccharomyces Boulardii (Probiotic) 250 MG Cap PO SCH (09:00)
== END 2022-11-16 13:20 | disposition home or self-care (01) | DRG 361 ==
LOC: FB.ED 18:01 → FB.MS 21:22
PROVIDERS: ADMIT Family Medicine; ATTEND Family Medicine
PROC: 0HBMXZZ Excision of Right Foot Skin, External Approach (ICD-10-PCS; principal; 2022-11-15)
DX: E11.621 Type 2 diabetes mellitus with foot ulcer (principal); L97.512 Non-pressure chronic ulcer of other part of right foot with fat layer exposed; N17.9 Acute kidney failure, unspecified; N18.9 Chronic kidney disease, unspecified; L03.031 Cellulitis of right toe; E86.0 Dehydration; E11.628 Type 2 diabetes mellitus with other skin complications; E78.5 Hyperlipidemia, unspecified; I10 Essential (primary) hypertension; L84 Corns and callosities; E78.00 Pure hypercholesterolemia, unspecified; K21.9 Gastro-esophageal reflux disease without esophagitis; F41.9 Anxiety disorder, unspecified; F32.A Depression, unspecified; E66.9 Obesity, unspecified; F17.200 Nicotine dependence, unspecified, uncomplicated; E11.65 Type 2 diabetes mellitus with hyperglycemia; E11.22 Type 2 diabetes mellitus with diabetic chronic kidney disease; Z79.4 Long term (current) use of insulin; Z88.7 Allergy status to serum and vaccine; Z79.82 Long term (current) use of aspirin; Z79.899 Other long term (current) drug therapy; Z86.16 Personal history of COVID-19; Z68.34 Body mass index [BMI] 34.0-34.9, adult
CPT/HCPCS: 36415; 71045; 73701-RT; 80048; 80053; 82947; 85025; 86140; 87040; 90732; 96374; 99222; 99238; 99285; 99285-25; A9270-GY; G0009; J0696; J1650; J1815; J1815-GY; J3490; J7030; Q9967

== ENCOUNTER 2023-01-26 17:34 | Emergency (ER) | payer BC ==
[2023-01-26] MEDS ORDERED: Sodium Chloride 0.9% 10 ML Syringe FLUSH PRN (17:59)
[2023-01-26] MEDS ORDERED: Piperacillin/Tazobactam 4.5 GM in Sodium Chloride 0.9% 100 ML IV STA (18:08)
[2023-01-26 18:27] LABS: BASOPHILS PERCENT AUTO 0.6 % (0.2-1.5); EOSINOPHILS ABSOLUTE AUTO 0.2 x10-3/uL (0.0-0.8); EOSINOPHILS PERCENT AUTO 2.4 % (0.6-8.1); HEMATOCRIT 32.2 % (34.2-48.2); HEMOGLOBIN 10.3 g/dL (11.4-15.5); LYMPHOCYTES ABSOLUTE AUTO 1.7 x10-3/uL (1.0-4.4); LYMPHOCYTES PERCENT AUTO 23.1 % (18.4-52.1); MEAN CORPUSCULAR HEMOGLOBIN 25.8 pg (23.9-33.9); MEAN CORPUSCULAR HGB CONC 32.1 g/dL (31.9-34.8); MEAN CORPUSCULAR VOLUME 80.3 fL (76.7-100.5); MEAN PLATELET VOLUME 9.4 fL (7.1-12.4); MONOCYTES ABSOLUTE AUTO 0.5 x10-3/uL (0.3-1.0); MONOCYTES PERCENT AUTO 6.4 % (4.4-15.7); NEUTROPHILS ABSOLUTE AUTO 4.8 x10-3/uL (1.5-6.3); NEUTROPHILS PERCENT AUTO 67.5 % (30.8-76.2); PLATELET COUNT,PLT 262 x10(3)uL (151-488); RED BLOOD CELL COUNT 4.01 x10(6)uL (3.60-5.20); RED CELL DISTRIBUTION WIDTH 14.6 % (12.3-16.5); WHITE BLOOD CELL COUNT,WBC 7.2 x10-3/uL (3.0-10.3)
[2023-01-26 18:28] LABS: BLOOD UREA NITROGEN,BUN 25 mg/dL (7-18); CALCIUM 9.4 mg/dL (8.6-10.2); CARBON DIOXIDE,CO2 28 mmol/L (21-32); CHLORIDE,CL 99 mmol/L (100-110); EST CRCL DRUG DOSING (CG) 51.81 mL/min; ESTIMATED GFR 63 mL/min (>60); GLUCOSE RANDOM 325 mg/dL (80-116); POTASSIUM,K 4.2 mmol/L (3.5-5.3); SODIUM,NA 135 mmol/L (135-145)
[2023-01-26 18:34] LABS: A/G RATIO 0.6; ALANINE AMINOTRANSFERASE,ALT 16 U/L (12-36); ALBUMIN 2.8 g/dL (3.2-4.6); ALKALINE PHOSPHATASE 204 IU/L (56-112); ASPARTATE AMNIOTRANSFERASE,AST 12 IU/L (5-25); BILIRUBIN TOTAL 0.3 mg/dL (0.1-1.3); PROTEIN TOTAL,TP 7.7 g/dL (6.0-8.0)
[2023-01-26 18:38] LABS: LACTIC ACID 1.3 mmol/L (0.4-2.0)
[2023-01-26] MEDS ORDERED: Iopamidol 755 Mg/ML 100 ML Bottle IV ONE (18:58)
[2023-01-26] MEDS: Sodium Chloride 0.9% 1,000 ML IV SCH ×2 (19:20→19:24)
[2023-01-26] MEDS ORDERED: Labetalol 20 MG/4 ML Syringe IVPUSH ONE (20:07)
== END 2023-01-26 21:51 ==
LOC: FB.ED 17:34
DX: E11.621 Type 2 diabetes mellitus with foot ulcer (principal); L97.511 Non-pressure chronic ulcer of other part of right foot limited to breakdown of skin; L03.115 Cellulitis of right lower limb; L02.415 Cutaneous abscess of right lower limb; M86.9 Osteomyelitis, unspecified; K21.9 Gastro-esophageal reflux disease without esophagitis; E78.00 Pure hypercholesterolemia, unspecified; E66.9 Obesity, unspecified; Z68.30 Body mass index [BMI] 30.0-30.9, adult; Z86.16 Personal history of COVID-19; Z88.7 Allergy status to serum and vaccine; Z79.82 Long term (current) use of aspirin; Z79.4 Long term (current) use of insulin; Z79.899 Other long term (current) drug therapy; Z89.411 Acquired absence of right great toe
CPT/HCPCS: 36415; 73701; 80053; 83605; 85025; 86140; 87040; 87070; 87077; 87186; 87205; 96361; 96365; 96375; 99285; J2543; J3490; J7030; Q9967

== ENCOUNTER 2025-06-09 07:01 | Day surgery (SDC) | payer BC ==
[~2025-06-09 07:01] MED LIST: Sodium Chloride 0.9% 10 ML Syringe FLUSH PRN
[2025-06-09] MEDS ORDERED: fentaNYL 100 MCG/2 ML SDV IV ONE (07:02)
[2025-06-09] MEDS ORDERED: Midazolam 1 MG/ML 2 ML SDV IV ONE (07:02)
[2025-06-09] MEDS: Lactated Ringers 1,000 ML IV PRN (07:53)
[2025-06-09] MEDS: acetaZOLAMIDE 500 MG Cap.ER PO ONE (09:23)
== END 2025-06-09 09:43 | disposition home or self-care (01) ==
LOC: FB.SDS 07:01
PROVIDERS: ATTEND Ophthalmology
DX: E11.36 Type 2 diabetes mellitus with diabetic cataract (principal); H25.813 Combined forms of age-related cataract, bilateral; E78.2 Mixed hyperlipidemia; E66.9 Obesity, unspecified; F17.210 Nicotine dependence, cigarettes, uncomplicated; Z79.4 Long term (current) use of insulin; Z79.84 Long term (current) use of oral hypoglycemic drugs; Z88.7 Allergy status to serum and vaccine; Z79.899 Other long term (current) drug therapy
CPT/HCPCS: 00142; 66984; A9270; J2250; J3010; J7120; V2632

== ENCOUNTER 2025-07-14 06:53 | Day surgery (SDC) | payer BC, MEDICARE ==
[~2025-07-14 06:53] MED LIST changes: +Lactated Ringers 1,000 ML IV SCH
[2025-07-14] MEDS ORDERED: fentaNYL 100 MCG/2 ML SDV IV ONE (06:54)
[2025-07-14] MEDS ORDERED: Midazolam 1 MG/ML 2 ML SDV IV ONE (06:54)
[2025-07-14] MEDS: acetaZOLAMIDE 500 MG Cap.ER PO ONE (08:33)
== END 2025-07-14 08:55 | disposition home or self-care (01) ==
LOC: FB.SDS 06:53
PROVIDERS: ATTEND Ophthalmology
DX: E11.36 Type 2 diabetes mellitus with diabetic cataract (principal); H25.813 Combined forms of age-related cataract, bilateral; E11.3293 Type 2 diabetes mellitus with mild nonproliferative diabetic retinopathy without macular edema, bilateral; E66.9 Obesity, unspecified; Z79.84 Long term (current) use of oral hypoglycemic drugs; Z79.4 Long term (current) use of insulin; Z88.7 Allergy status to serum and vaccine; Z79.899 Other long term (current) drug therapy
CPT/HCPCS: 00142; 82947; A9270-GY; J2250; J3010; V2632